=== PATIENT | female | born 1985 | race Caucasian/White ===

== ENCOUNTER 2017-10-06 09:23 | Emergency (ER) | payer BC, MEDICAID ==
[~2017-10-06] VITALS: Ht 157.5 cm; Wt 100.0 kg
[2017-10-06 09:53] VITALS: BP 133/67
== END 2017-10-06 09:54 | disposition home or self-care (01) ==
LOC: ER 09:23
DX: Z04.1 Encounter for examination and observation following transport accident (principal)
CPT/HCPCS: 99281

== ENCOUNTER 2024-03-15 14:55 | Emergency (ER) | payer MEDICAID ==
[~2024-03-15] VITALS: Ht 157.5 cm; Wt 113.4 kg
[2024-03-15 16:21] LABS: BASOPHILS % (AUTO) 0.4 % (0-1); EOSINOPHILS # (AUTO) 0.1 X10'3 (0-0.9); EOSINOPHILS % (AUTO) 0.9 % (0-6); HEMOGLOBIN 13.8 g/dl (12.0-16.0); LYMPHOCYTES % (AUTO) 13.7 % (21-51); MEAN CORPUSCULAR HEMOGLOBIN 33.2 PG (27.0-31.0); MEAN CORPUSCULAR HGB CONC 32.8 g/dL (33.0-36.5); MEAN CORPUSCULAR VOLUME 101.1 FL (78-98); MEAN PLATELET VOLUME 7.9 FL (7.4-10.4); MONOCYTES # (AUTO) 0.5 X10'3 (0-0.9); MONOCYTES % (AUTO) 6.8 % (2-12); NEUTROPHILS # (AUTO) 5.7 X10'3 (1.8-7.7); NEUTROPHILS % (AUTO) 78.2 % (42-75); PLATELET COUNT 235 X10'3 (140-440); RED BLOOD COUNT 4.16 X10'6 (4.20-5.60); WHITE BLOOD COUNT 7.3 X10'3 (4.5-11.0)
[2024-03-15 16:34] LABS: ALBUMIN 3.1 G/DL (3.4-5.0); ANION GAP 11 (8-16); BLOOD UREA NITROGEN 6 MG/DL (7-18); CALCIUM 8.5 MG/DL (8.5-10.1); CHLORIDE 99 MMOL/L (99-107); CREATININE 0.75 MG/DL (0.40-0.90); GLUCOSE 125 MG/DL (70-104); POTASSIUM 3.1 MMOL/L (3.5-5.1); SODIUM 137 MMOL/L (135-145); TOTAL CARBON DIOXIDE 26.6 MMOL/L (24-32); eCRCL 81 ML/MIN; eGFR 87 ML/MIN
[2024-03-15] MEDS: POTASSIUM CHLORIDE 20 MEQ/15 ML oral solution PO SCH (17:19)
[2024-03-15] MEDS ORDERED: METH4TAB81 PO (18:10)
[2024-03-15] MEDS ORDERED: AZIT500T2 PO (18:10)
[2024-03-15 18:38] VITALS: BP 144/91; PULSE 79; RESP 16; TEMP 98.2; O2SAT 96
[2024-03-16] MEDS ORDERED: POTASSIUM CHLORIDE 20 MEQ/15 ML oral solution PO SCH (08:00)
== END 2024-03-15 18:41 | disposition home or self-care (01) ==
LOC: ER 14:56
DX: J40 Bronchitis, not specified as acute or chronic (principal)
CPT/HCPCS: 36415; 71045; 80048; 85025; 99284